=== PATIENT | female | born 1975 | race Caucasian/White ===

== ENCOUNTER → 2017-05-26 | Outpatient (CLI) | payer OTHER ==
[~2017-05-26] MED LIST: ALB17R INH; AZIT-1 PO; BENZ200C15 PO; BENZ200C38 PO; BUPR-474 PO; BUSP10TA95 PO; CALC600T63 PO; CODE118S5 PO; DIA5 PO; DIP25 PO; FLUT16SP19; FLUT16SP20 NS; KET10 PO; LISI-355 PO; LISI-362 PO; METH4TAB63 PO; MONT10TA PO; MULT1CAP59 PO; NYST100016 MT; OXYC-869 PO; PER PO; PHEN120S16 PO; PRED20TA6 PO; RAN150 PO; Return to Work; SIMV-44 PO; SUVO10TA PO; TRAM-420 PO; VAR1 PO; ZOLP-1 PO
--- NOTE | 2017-05-26 10:21 | RADIOLOGY IMAGING REPORT ---
FACILITY: [facility] PATIENT NAME: Erika Clarke : 1975 MR: [id number] V: [id number] EXAM DATE: ORDERING PHYSICIAN: VANDANA MCCOY TECHNOLOGIST: Location: [facility] Patient: Erika Clarke : 1975 Visit/Account:[id number] Date of Sevice: 05/26/2017 EXAMINATION: Abdominal ultrasound complete: 05/26/2017 8:09 AM HISTORY: Mass in the left upper quadrant measuring 2 to 3 cm. Pain.. Tenderness with palpation. COMPARISON STUDIES: none. FINDINGS: Gallbladder: no stones or sludge. Liver: Mildly prominent. Diffuse echogenic and poorly penetrated. Focal sparing adjacent to the gal lbladder. No other discrete mass. Common duct: 4 mm Pancreas: Obscured by bowel gas Spleen: negative Kidneys: negative Upper abdominal aorta and IVC: negative Ascites: none Imaging of the abdominal wall near of pain shown by the patient was performed. No discrete mass or h ernia was demonstrate sonographically. An elongated echogenic area in some of the images appears sim ply be a fascial band between muscle, and that was the technologist live impression as well. IMPRESSION: 1. Prominent fatty liver. 2. No discrete finding correlating with the area of lump and pain in the left abdomen shown by the p atient. Report Dictated By: Pawan Lindquist MD at 05/26/2017 10:09 AM Report E-Signed By: Pawan Lindquist MD at 05/26/2017 10:16 AM WSN:[id number]
== END ==
LOC: US 06:54
PROVIDERS: ATTEND Nurse Practitioner Family
DX: K76.0 Fatty (change of) liver, not elsewhere classified (principal)
CPT/HCPCS: 76700

== ENCOUNTER → 2017-06-05 | Outpatient (CLI) | payer OTHER ==
[~2017-06-05] MED LIST changes: +IOPAMIDOL 76% 75 ML INFUS BTL 75 ML ONE
--- NOTE | 2017-06-05 15:59 | RADIOLOGY IMAGING REPORT ---
FACILITY: [facility] [place] PATIENT NAME: Erika Clarke : 1975 MR: [id number] V: [id number] EXAM DATE: ORDERING PHYSICIAN: VANDANA MCCOY TECHNOLOGIST: Location: [facility] Patient: Erika Clarke : 1975 Visit/Account:[id number] Date of Sevice: 06/05/2017 ABDOMEN/PELVIS WITH CONTRAST HISTORY: Abdominal mass, abdominal pain TECHNIQUE: CT abdomen and pelvis with intravenous contrast. Contiguous axial images of the abdomen and pelvis was performed from the lung bases to the symphysis pubis. One of the following dose optimization techniques was utilized in the performance of this exam: Autom ated exposure control; adjustment of the mA and/or kV according to the patient's size; or use of an i terative reconstruction technique. Specific details can be referenced in the facility's radiology C T exam operational policy. CONTRAST: 75 cc of Isovue-370 COMPARISON: Ultrasound 05/26/2017 FINDINGS: Visualized lung bases: Negative. Hepatobiliary: Liver measures 19.6 cm in craniocaudal length with diffuse fatty infiltration. Gallbl adder and bile ducts are unremarkable. Spleen: Negative. Adrenals: Negative. Kidneys/: Benign right renal cortical cyst is noted posterior mid pole measures 1.1 cm. There is a n enhancing follicle left ovary likely a corpus luteal cyst. Pancreas: Negative. GI: Appendix is not well-visualized may be absent. No bowel obstruction or focal inflammation. Vessels/spaces/nodes: Negative. Bones/soft tissues: Negative. IMPRESSION: 1. No acute pathology in the abdomen or pelvis. 2. Fatty infiltration of the liver. Report Dictated By: Bry Castro MD at 06/05/2017 3:48 PM Report E-Signed By: Bry Castro MD at 06/05/2017 3:55 PM WSN:[id number]
== END ==
LOC: CT 08:54
PROVIDERS: ATTEND Nurse Practitioner Family
DX: R19.00 Intra-abdominal and pelvic swelling, mass and lump, unspecified site (principal); I10 Essential (primary) hypertension; E55.9 Vitamin D deficiency, unspecified; D51.0 Vitamin B12 deficiency anemia due to intrinsic factor deficiency
CPT/HCPCS: 36415; 74177; 82306; 82565; 82607; Q9967

== ENCOUNTER → 2017-06-10 | Outpatient (CLI) | payer OTHER ==
[~2017-06-10] MED LIST changes: +NS 0.9% 150 ML BAG 150 ML ONE
--- NOTE | 2017-06-10 14:38 | RADIOLOGY IMAGING REPORT ---
FACILITY: [facility] PATIENT NAME: Erika Clarke : 1975 MR: [id number] V: [id number] EXAM DATE: ORDERING PHYSICIAN: VANDANA MCCOY TECHNOLOGIST: Location: Patient: Erika Clarke : 1975 Visit/Account:[id number] Date of Sevice: 06/10/2017 CTA CHEST WW/O CNTR (PULM ANG) HISTORY: Chronic cough. ADDITIONAL HISTORY: None. TECHNIQUE: CTA chest with intravenous contrast. Axial imaging acquired following administration of IV contrast timed for maximum opacification of the pulmonary arterial vasculature. Slab 3-D MIP ananth nstructed images were also created for further evaluation and interpretation. Reconstruction of the [facility] data set includes multiplanar 2-D in the sagittal and coronal planes and 3-D reconstructed sanya nal slab MIP series. 3-D images were created by the technologist. One of the following dose optimiz ation techniques was utilized in the performance of this exam: Automated exposure control; adjustment of the mA and/or kV according to the patient's size; or use of an iterative reconstruction techniqu e. Specific details can be referenced in the facility's radiology CT exam operational policy. CONTRAST: 75 mL Isovue-370 COMPARISON: None. FINDINGS: Lungs/pleura: There is a very subtle indistinct groundglass opacity seen in the right upper lobe onl y measuring approximately 2 cm in diameter. The appearance is more suggestive of a small area of inf lammation than of the lesion. There are no solid nodule seen in the lungs in lung parenchyma is othe rwise normal and well-aerated. Heart/vessels: Negative. There are no filling defects seen in the pulmonary arteries worrisome for a pulmonary embolus. Mediastinum/lymph nodes: Negative. Visualized upper abdomen: Liver measures only 25 Hounsfield units appear no focal liver lesions are seen. Visualized abdominal viscera otherwise normal. Bones/soft tissues: Negative. Additional findings: None IMPRESSION: Negative for pulmonary embolus. Findings suggestive of a mild inflammatory process involving only a small area of the right upper lob e. Malignancy considered unlikely. However, per Fleischner Society guidelines detailed below recomm end a three month follow-up noncontrast chest CT. If persistent at three months longer-term surveill ance CTs may be necessary. Hepatic steatosis Fleischner Society Management Recommendations for Ground Glass Nodules: (Agutsina et al, Recommendatio ns for the management of sub-solid pulmonary nodules detected at CT: A Statement from the Fleischner Society. Radiology 2013; 266(1): 304-317.) - Solitary pure groundglass nodules less than or equal to 5 mm: No CT followup required. - Solitary pure groundglass nodules >5 mm: Initial followup CT at 3 months to confirm persistence the n annual surveillance CT for a minimum of 3 years. Please note FDG PET is of limited value with pure groundglass nodules, and can be misleading as they commonly demonstrate false negative activity due t o their indolent nature. - Multiple pure groundglass nodules less than or equal to 5 mm: Obtain followup CT at 2 and 4 years. - Multiple groundglass nodules >5 mm (without dominant lesion(s)): Initial followup CT at 3 months to confirm persistence, and then annual surveillance CT for a minimum of 3 years. Please note recommendations must be interpreted in light of an individual's clinical history (i.e. li mited duration or no followup may be preferred by individuals with life-limiting comorbidities in who m a low-grade malignancy would be of little consequence or by others who place a high value on avoidi ng treatment of possible indolent lung cancer). Report Dictated By: Kana Mohr MD at 06/10/2017 2:19 PM Report E-Signed By: Kana Mohr MD at 06/10/2017 2:32 PM WSN:[id number]
== END ==
LOC: CT 13:38
PROVIDERS: ATTEND Nurse Practitioner Family
DX: K83.1 Obstruction of bile duct (principal); R91.8 Other nonspecific abnormal finding of lung field
CPT/HCPCS: 71275; Q9967

== ENCOUNTER → 2017-07-01 | Outpatient (CLI) | payer OTHER ==
[~2017-07-01] MED LIST changes: -IOPAMIDOL 76% 75 ML INFUS BTL 75 ML ONE; -NS 0.9% 150 ML BAG 150 ML ONE
--- NOTE | 2017-07-01 13:30 | RADIOLOGY IMAGING REPORT ---
FACILITY: [facility] PATIENT NAME: Erika Clarke : 1975 MR: [id number] V: [id number] EXAM DATE: ORDERING PHYSICIAN: VANDANA MCCOY TECHNOLOGIST: Location: [facility] [place] Patient: Erika Clarke : 1975 Visit/Account:[id number] Date of Sevice: 07/01/2017 LUMBAR SPINE 4 VIEWS HISTORY: Chronic sciatica Additional history: None COMPARISON: None. FINDINGS: Five views including oblique views performed. Lumbar spine is aligned. There is mild disc space jordan rowing L5-S1. Disc space height is otherwise well maintained. Osseous structures normal. There is no evidence of spondylolysis. IMPRESSION: Probable degenerative disc disease L5-S1. Otherwise unremarkable study. Report Dictated By: Kana Mohr MD at 07/01/2017 1:24 PM Report E-Signed By: Kana Mohr MD at 07/01/2017 1:26 PM WSN:[id number]
== END ==
LOC: RAD 10:59
PROVIDERS: ATTEND Nurse Practitioner Family
DX: M54.30 Sciatica, unspecified side (principal); M54.40 Lumbago with sciatica, unspecified side
CPT/HCPCS: 72120

== ENCOUNTER → 2017-09-30 | Outpatient (CLI) | payer OTHER ==
[~2017-09-30] MED LIST changes: +OMEP40CA48 PO; +RANI-325 PO
--- NOTE | 2017-09-30 17:24 | RADIOLOGY IMAGING REPORT ---
FACILITY: [facility] PATIENT NAME: Erika Clarke : 1975 MR: [id number] V: [id number] EXAM DATE: ORDERING PHYSICIAN: ANGELINA STRATTON TECHNOLOGIST: Location: [facility] [place] Patient: Erika Clarke : 1975 Visit/Account:[id number] Date of Sevice: 09/30/2017 CT OF THE CHEST WITHOUT INTRAVENOUS CONTRAST, DATE OF EXAM: 09/30/2017 16:36 COMPARISON: CTA chest June 10, 2017. INDICATION: Upper extremity edema. Shortness of breath. TECHNIQUE: Noncontrast axial CT imaging was performed through the chest with sagittal and coronal ref ormats. FINDINGS: No effusion, consolidation, or pneumothorax. Mild scattered atelectasis. Some of the faint opacity in the right lower lobe could potentially be aspiration but may be atelectasis as well. Thyroid: Incompletely imaged. Thoracic inlet: No adenopathy. Heart and great vessels: Heart size is normal. Mediastinum and khushbu: No mediastinal or hilar adenopathy. Lungs and pleura: As above. Breast and axilla: Breast tissue is incompletely imaged. Bones and soft tissues: No acute osseous abnormality. Upper abdomen: Liver parenchymal density is diffusely decreased. IMPRESSION: 1. No effusion, consolidation, or pneumothorax. 2. Mild scattered atelectasis with faint patchy opacity in the right lower lobe that is probably atel ectasis but could also represent minimal aspiration. One of the following dose optimization techniques was utilized in the performance of this exam: Autom ated exposure control; adjustment of the mA and/or kV according to the patient's size; or use of an i terative reconstruction technique. Specific details can be referenced in the facility's radiology C T exam operational policy. Report Dictated By: Sigifredo Taylor MD at 09/30/2017 5:11 PM Report E-Signed By: Sigifredo Taylor MD at 09/30/2017 5:19 PM WSN:[id number]
--- NOTE | 2017-09-30 18:18 | RADIOLOGY IMAGING REPORT ---
FACILITY: [facility] [place] PATIENT NAME: Erika Clarke : 1975 MR: [id number] V: [id number] EXAM DATE: ORDERING PHYSICIAN: ANGELINA STRATTON TECHNOLOGIST: Location: [facility] [place] Patient: Erika Clarke : 1975 Visit/Account:[id number] Date of Sevice: 09/30/2017 VENOUS DOPP LOWER BILAT EXTREM HISTORY: Bilateral calf pain COMPARISON: None. FINDINGS: Grayscale, duplex and color Doppler interrogation of the bilateral lower extremity deep veins from co mmon femoral vein to proximal calf was completed. The greater saphenous vein in the right and left pr oximal thigh was evaluated using similar technique. RIGHT lower extremity Common femoral vein: Negative. Femoral vein: Negative. Deep femoral vein: Negative. Popliteal vein: Negative. Visualized calf veins: Negative. Popliteal fossa: Negative. Greater saphenous vein in the proximal thigh: Negative. LEFT lower extremity: Common femoral vein: Negative. Femoral vein: Negative. Deep femoral vein: Negative. Popliteal vein: Negative. Visualized calf veins: Negative. Popliteal fossa: Negative. Greater saphenous vein in the proximal thigh: Negative. Other findings: None significant IMPRESSION: 1. Negative for deep venous thrombosis within the bilateral lower extremities. Report Dictated By: Everett Carreon MD at 09/30/2017 6:13 PM Report E-Signed By: Everett Carreon MD at 09/30/2017 6:14 PM WSN:[id number]
== END ==
LOC: CT 16:24
PROVIDERS: ATTEND Nurse Practitioner Family
DX: R91.8 Other nonspecific abnormal finding of lung field (principal)
CPT/HCPCS: 71250; 93306; 93970

== ENCOUNTER → 2017-10-01 | Outpatient (CLI) | payer OTHER | LOC: LAB 15:13 | PROVIDERS: ATTEND Nurse Practitioner Family | DX: R06.02 Shortness of breath (principal); R06.82 Tachypnea, not elsewhere classified; R53.81 Other malaise; E87.8 Other disorders of electrolyte and fluid balance, not elsewhere classified; E79.0 Hyperuricemia without signs of inflammatory arthritis and tophaceous disease | CPT/HCPCS: 36415; 82040; 82247; 82310; 82374; 82435; 82565; 82947; 83880; 84075; 84132; 84155; 84295; 84450; 84460; 84520; 84550; 85027 ==

== ENCOUNTER 2018-03-08 05:53 | Emergency (ER) | payer OTHER ==
--- NOTE | 2018-03-08 05:57 | ER Report ---
History and Physical Time Seen By MD: 05:57 (ELÍAS FLEMING DO) HPI/ROS CHIEF COMPLAINT: Right flank pain HISTORY OF PRESENT ILLNESS: 42-year-old female presents ambulatory to the ER complaining of 9/10 right flank pain starting yesterday morning, radiating down to her right lower abdomen and across to her lower abdomen. Patient status post appendectomy. Her last menstrual period finished 3 days ago. She denies fever or chills. She's had no hematuria or dysuria. Patient reports history of kidney stones in the past. REVIEW OF SYSTEMS: Respiratory: No cough, no dyspnea. Cardiovascular: No chest pain, no palpitations. Gastrointestinal: As above Musculoskeletal: As above (ELÍAS FLEMING DO) Allergies: Coded Allergies: Sulfa (Sulfonamide Antibiotics) (Verified Allergy, Intermediate, HIVES SWELLING, 03/08/18) methocarbamol (Verified Allergy, Intermediate, HIVES AND SWELLING, 03/08/18) Home Meds Active Scripts Ondansetron Hcl (ZOFRAN) 4 Mg Tablet, 4 MG PO Q8H for Nausea, #15 TAB 0 Refills Prov:MARCELO COREA MD 03/08/18 Oxycodone Hcl/Acetaminophen (PERCOCET 5-325 MG TABLET) 1 Each Tablet, 1 EACH PO Q4H for PAIN, #20 TAB 0 Refills Prov:MARCELO COREA MD 03/08/18 Reported Medications Olmesartan Medoxomil (BENICAR) 5 Mg Tablet, PO QDAY 03/08/18 Omeprazole (OMEPRAZOLE) 40 Mg Capsule.dr, 40 MG PO QDAY, CAP 03/08/18 Multivitamin (MULTIVITAMINS) 1 Each Capsule, 1 EACH PO, CAPSULE 03/18/17 Tramadol Hcl (TRAMADOL HCL) 50 Mg Tablet, 50-100 MG PO Q4-6H, TAB 03/18/17 Bupropion Hcl (WELLBUTRIN XL) 300 Mg Tab.er.24h, 300 MG PO QDAY, TAB 03/01/17 Discontinued Reported Medications Calcium Carbonate (CALCIUM) 600 Mg Tablet, 600 MG PO 03/18/17 Montelukast Sodium (SINGULAIR) 10 Mg Tablet, 1 TAB PO QDAY, TAB 03/01/17 Buspirone Hcl (BUSPIRONE HCL) 10 Mg Tablet, 20 MG PO BID, #20 TAB 05/05/16 Lisinopril/Hydrochlorothiazide (LISINOPRIL-HCTZ 20-25 MG TAB) 1 Each Tablet, 1 EACH PO DAILY 03/28/16 Discontinued Scripts Omeprazole (OMEPRAZOLE) 40 Mg Capsule.dr, 1 CAP PO QDAY for 30 Days, #30 CAP 0 Refills Prov:ERAN SANTOS JR, MD 07/31/17 Ranitidine Hcl (ZANTAC) 300 Mg Tablet, 300 MG PO QHS for 30 Days, #30 TAB Prov:ERAN SANTOS JR, MD 07/20/17 Fluticasone Prop 50 Mcg Ns (FLONASE 50 MCG NS) 16 Gm Wren.susp, 2 SPRAYS NA QDAY for 30 Days, #1 BOT 3 Refills Prov:ERAN SANTOS JR, MD 03/17/17 Nystatin (Nystatin) 100,000 Unit/Ml Oral.susp, 5 ML MT QID for 10 Days, #200 ML Prov:ERAN SANTOS JR, MD 03/17/17 Past Medical/Surgical History Past medical history: Hyperlipidemia, hypertension, asthma, GERD, dyspepsia, anx iety, depression, seasonal allergies Past surgical history: Appendectomy, 1997 2002, tubal ligation (ELÍAS FLEMING DO) Reviewed Nurses Notes: Yes Old Medical Records Reviewed: Yes (ELÍAS FLEMING DO) Hx Smoking: Yes Smoking Status: Current: Every Day Smoker, Light Tobacco Smoker (ELÍAS FLEMING DO) Constitutional Vital Sign - Last 24 Hours 03/08/18 03/08/18 03/08/18 03/08/18 06:00 06:08 06:23 06:30 Temp 98.7 Pulse 100 94 96 Resp 24 B/P (MAP) 176/105 138/97 (111) Pulse Ox 91 93 90 03/08/18 03/08/18 03/08/18 06:38 07:00 07:29 Pulse 94 B/P (MAP) 133/88 (103) Pulse Ox 91 O2 Flow Rate 1.0 (MARCELO COREA MD) Physical Exam Vital signs stable, elevated blood pressure, afebrile, pulse ox normal General Appearance: The patient is alert, has no immediate need for airway protection and no current signs of toxicity. Moderate distress Eyes: Pupils equal and round no injection. Respiratory: Chest is non tender, lungs are clear to auscultation. Cardiac: regular rate and rhythm, no murmur Gastrointestinal: Abdomen is soft and non tender, no masses, bowel sounds normal. Mild right CVA tenderness Musculoskeletal: Neck: Neck is supple and non tender. Extremities have full range of motion and are non tender. Skin: No rashes or lesions. DIFFERENTIAL DIAGNOSIS: After history and physical exam differential diagnosis was considered for flank pain including but not limited to musculoskeletal causes, kidney stone, pyelonephritis, shingles, and intra-abdominal causes such as diverticulitis and appendicitis. Additionally,abdominal pain including but not limited to appendicitis, cholecystitis, gastritis and urinary tract in fection. (ELÍAS FLEMING DO) Medical Decision Making Data Points Result Diagram: 03/08/18 0606 03/08/18 0606 Laboratory Hematology Test 03/08/18 06:06 03/08/18 07:15 Red Blood Count 4.61 M/uL (4.17-5.56) Mean Corpuscular Volume 80.1 fL (80.0-96.0) Mean Corpuscular Hemoglobin 25.3 pg (26.0-33.0) Mean Corpuscular Hemoglobin Concent 31.7 g/dL (32.0-36.0) Red Cell Distribution Width 15.8 % (11.5-14.5) Mean Platelet Volume 8.8 fL (7.2-11.1) Neutrophils (%) (Auto) 57.6 % (39.4-72.5) Lymphocytes (%) (Auto) 32.2 % (17.6-49.6) Monocytes (%) (Auto) 5.6 % (4.1-12.4) Eosinophils (%) (Auto) 3.5 % (0.4-6.7) Basophils (%) (Auto) 1.1 % (0.3-1.4) Nucleated RBC Relative Count (auto) 0.0 /100WBC Neutrophils # (Auto) 3.7 K/uL (2.0-7.4) Lymphocytes # (Auto) 2.1 K/uL (1.3-3.6) Monocytes # (Auto) 0.4 K/uL (0.3-1.0) Eosinophils # (Auto) 0.2 K/uL (0.0-0.5) Basophils # (Auto) 0.1 K/uL (0.0-0.1) Nucleated RBC Absolute Count (auto) 0.00 K/uL Sodium Level 136 mmol/L (137-145) Potassium Level 4.4 mmol/L (3.5-5.0) Chloride Level 104 mmol/L (98-107) Carbon Dioxide Level 25 mmol/L (22-31) Blood Urea Nitrogen 14 mg/dl (7-18) Creatinine 0.60 mg/dl (0.52-1.04) Glomerular Filtration Rate Calc > 60.0 Random Glucose 132 mg/dl (75-110) Calcium Level 8.9 mg/dl (8.4-10.2) Total Bilirubin 0.2 mg/dl (0.2-1.3) Aspartate Amino Transf (AST/SGOT) 51 U/L (0-35) Alanine Aminotransferase (ALT/SGPT) 65 U/L (0-56) Alkaline Phosphatase 67 U/L (0-126) Total Protein 6.3 g/dl (6.3-8.2) Albumin 3.6 g/dl (3.5-5.0) Amylase Level 36 U/L (0-110) Lipase 105 U/L (23-300) Human Chorionic Gonadotropin, Qual Negative (NEGATIVE) Urine Color Yellow Urine Clarity Clear Urine pH 6.0 pH (4.8-9.5) Urine Specific [place] 1.024 Urine Protein Negative mg/dL (NEGATIVE) Urine Glucose (UA) Negative mg/dL (NEGATIVE) Urine Ketones Negative mg/dL (NEGATIVE) Urine Blood Negative (NEGATIVE) Urine Nitrite Negative (NEGATIVE) Urine Bilirubin Negative (NEGATIVE) Urine Urobilinogen Negative mg/dL (0.2-1.9) Urine Leukocyte Esterase Trace (NEGATIVE) Urine RBC 1 /HPF (0-2/HPF) Urine WBC 1 /HPF (0-5/HPF) Urine Squamous Epithelial Cells Many /LPF (</=FEW) Urine Bacteria Negative /HPF (NONE-FEW) Urine Mucus Few /HPF (NONE-FEW) Chemistry Test 03/08/18 06:06 03/08/18 07:15 White Blood Count 6.4 k/uL (4.5-11.0) Red Blood Count 4.61 M/uL (4.17-5.56) Hemoglobin 11.7 g/dL (12.0-16.0) Hematocrit 37.0 % (34.0-47.0) Mean Corpuscular Volume 80.1 fL (80.0-96.0) Mean Corpuscular Hemoglobin 25.3 pg (26.0-33.0) Mean Corpuscular Hemoglobin Concent 31.7 g/dL (32.0-36.0) Red Cell Distribution Width 15.8 % (11.5-14.5) Platelet Count 323 K/uL (150-450) Mean Platelet Volume 8.8 fL (7.2-11.1) Neutrophils (%) (Auto) 57.6 % (39.4-72.5) Lymphocytes (%) (Auto) 32.2 % (17.6-49.6) Monocytes (%) (Auto) 5.6 % (4.1-12.4) Eosinophils (%) (Auto) 3.5 % (0.4-6.7) Basophils (%) (Auto) 1.1 % (0.3-1.4) Nucleated RBC Relative Count (auto) 0.0 /100WBC Neutrophils # (Auto) 3.7 K/uL (2.0-7.4) Lymphocytes # (Auto) 2.1 K/uL (1.3-3.6) Monocytes # (Auto) 0.4 K/uL (0.3-1.0) Eosinophils # (Auto) 0.2 K/uL (0.0-0.5) Basophils # (Auto) 0.1 K/uL (0.0-0.1) Nucleated RBC Absolute Count (auto) 0.00 K/uL Glomerular Filtration Rate Calc > 60.0 Calcium Level 8.9 mg/dl (8.4-10.2) Total Bilirubin 0.2 mg/dl (0.2-1.3) Aspartate Amino Transf (AST/SGOT) 51 U/L (0-35) Alanine Aminotransferase (ALT/SGPT) 65 U/L (0-56) Alkaline Phosphatase 67 U/L (0-126) Total Protein 6.3 g/dl (6.3-8.2) Albumin 3.6 g/dl (3.5-5.0) Amylase Level 36 U/L (0-110) Lipase 105 U/L (23-300) Human Chorionic Gonadotropin, Qual Negative (NEGATIVE) Urine Color Yellow Urine Clarity Clear Urine pH 6.0 pH (4.8-9.5) Urine Specific [place] 1.024 Urine Protein Negative mg/dL (NEGATIVE) Urine Glucose (UA) Negative mg/dL (NEGATIVE) Urine Ketones Negative mg/dL (NEGATIVE) Urine Blood Negative (NEGATIVE) Urine Nitrite Negative (NEGATIVE) Urine Bilirubin Negative (NEGATIVE) Urine Urobilinogen Negative mg/dL (0.2-1.9) Urine Leukocyte Esterase Trace (NEGATIVE) Urine RBC 1 /HPF (0-2/HPF) Urine WBC 1 /HPF (0-5/HPF) Urine Squamous Epithelial Cells Many /LPF (</=FEW) Urine Bacteria Negative /HPF (NONE-FEW) Urine Mucus Few /HPF (NONE-FEW) Urinalysis Test 03/08/18 07:15 Urine Color Yellow Urine Clarity Clear Urine pH 6.0 pH (4.8-9.5) Urine Specific [place] 1.024 Urine Protein Negative mg/dL (NEGATIVE) Urine Glucose (UA) Negative mg/dL (NEGATIVE) Urine Ketones Negative mg/dL (NEGATIVE) Urine Blood Negative (NEGATIVE) Urine Nitrite Negative (NEGATIVE) Urine Bilirubin Negative (NEGATIVE) Urine Urobilinogen Negative mg/dL (0.2-1.9) Urine Leukocyte Esterase Trace (NEGATIVE) Urine RBC 1 /HPF (0-2/HPF) Urine WBC 1 /HPF (0-5/HPF) Urine Squamous Epithelial Cells Many /LPF (</=FEW) Urine Bacteria Negative /HPF (NONE-FEW) Urine Mucus Few /HPF (NONE-FEW) (MARCELO COREA MD) EKG/Imaging Imaging FACILITY: [facility] [place] PATIENT NAME: Erika Clarke : 1975 MR: [id number] V: [id number] EXAM DATE: [id number] ORDERING PHYSICIAN: ELÍAS FLEMING TECHNOLOGIST: Location: [facility] - [place] Patient: Erika Clarke : 1975 Visit/Account:[id number] Date of Sevice: 03/08/2018 COMPUTED TOMOGRAPHY ABDOMEN AND PELVIS WITHOUT INTRAVENOUS CONTRAST DATE OF EXAM: 03/08/2018 6:29 AM INDICATION: Right flank pain. COMPARISON: CT abdomen and pelvis 06/05/2017 and previous. TECHNIQUE: Noncontrast abdomen and pelvis CT performed. Sagittal and coronal reconstructions were performed. One of the following dose optimization techniques was utilized in the performance of this exam: Automated exposure control; adjustment of the mA and/or kV according to the patient's size; or use of an iterative reconstruction technique. Specific details can be referenced in the facility's radiology CT exam operational policy. FINDINGS: Lung bases: Mild atelectasis. Liver: Liver is enlarged and diffusely hypoattenuating with sparing about the gallbladder fossa. No apparent acute abnormality or suspicious lesion. Gallbladder and bile ducts: Normal. Spleen: Normal. Pancreas: Normal. Adrenals: Normal. Kidneys, ureters and bladder: Bilateral small nonobstructing calculi. No hydronephrosis. No suspicious lesion. Question small cyst in left kidney on image 61 series 3. Retroperitoneum and aorta: Normal aorta. Circumaortic left renal veins. GI tract, mesentery and peritoneum: Nonacute. Nonvisualized appendix with no evidence of acute inflammation in the region of the cecum; question appendectomy. Uterus and adnexa: Normal. Bones and soft tissues: No acute abnormality or suspicious lesion. IMPRESSION: 1. No apparent acute abnormality. 2. Bilateral nonobstructing renal calculi. 3. Hepatomegaly and steatosis. Report Dictated By: Carmelo Whitman MD at 03/08/2018 7:24 AM Report E-Signed By: Carmelo Whitman MD at 03/08/2018 7:32 AM WSN:[id number] (MARCELO COREA MD) ED Course/Re-evaluation Clinical Indication for ER IV: Hydration, IV Access ED Course Patient was admitted to an examination room. H&P was done. The differential diagnoses was considered. Initial diagnostic evaluation was ordered. Patient was treated with IV Zofran and fentanyl. She's having severe right flank pain. She has a history of previous stones on a CAT scan in 2010. She is unable to provide us with a urinalysis. A CT scan of the abdomen and pelvis is ordered without contrast. Laboratory studies are unremarkable and discussed with Dr. Castillo care is turned over at [address] is still pending. Turned Over The care of the patient was turned over to Dr Corea. Dr. Fleming I authorize my typed signature that I authenticated this report. (ELÍAS FLEMING DO) ED Course 03/08/2018 7:46:29 am patient improved but still having discomfort. CT scan reveals no apparent acute abnormality. Blood work is unremarkable. Urinalysis is not suggestive of infection. We will give some additional pain medicine. Likely discharge home with shortness to return if symptoms worsen or persist. 03/08/2018 9:23:56 am patient is being observed in the emergency department due to some desaturations noticed on pulse ox likely narcotic induced. We will give a dose of Narcan and continue to observe until she stabilizes with a pulse ox. Decision to Disposition Date: Mar 08, 2018 Decision to Disposition Time: 07:57 Turned Over Accepted care of patient at 0700; CT scan pending. Patient still having right flank pain we'll dose with Toradol and fentanyl. (MARCELO COREA MD) Depart Departure Latest Vital Signs Vital Signs Date Time Temp Pulse Resp B/P (MAP) Pulse Ox O2 Delivery O2 Flow Rate FiO2 03/08/18 07:29 1.0 03/08/18 07:00 133/88 (103) 03/08/18 06:38 94 91 03/08/18 06:00 98.7 24 (MARCELO COREA MD) Impression: Primary Impression: Flank pain Condition: Improved Disposition: HOME OR SELF-CARE Referrals: VANDANA MCCOY (PCP) 2 Days if symptoms persist New Scripts Ondansetron Hcl (ZOFRAN) 4 Mg Tablet 4 MG PO Q8H for Nausea, #15 TAB 0 Refills Prov: MARCELO COREA MD 03/08/18 Oxycodone Hcl/Acetaminophen (PERCOCET 5-325 MG TABLET) 1 Each Tablet 1 EACH PO Q4H for PAIN, #20 TAB 0 Refills Prov: MARCELO COREA MD 03/08/18 Departure Forms: ER Transition Record, Medications Reconciliation, Off Work/School Form, School or Work Release?: Work Number of days to be released: 2 Patient Portal Information Patient Instructions: Flank Pain (ED) Additional Instructions: Return to the emergency department at any time if he develops fever. Return if you have persistent pain or intractable nausea and vomiting. Follow-up with your primary care provider if you do not have improvement in 48 hours. ELÍAS FLEMING DO Mar 08, 2018 05:57 MARCELO COREA MD Mar 08, 2018 07:13
[2018-03-08] MEDS ORDERED: OLME5TAB8 PO (06:06)
[2018-03-08] MEDS ORDERED: OMEP40CA48 PO (06:06)
[2018-03-08] MEDS ORDERED: NS(*) 0.9% 1000 ML BAG 1,000 ML IV ONE (06:08)
[2018-03-08] MEDS ORDERED: ONDANSETRON 4 MG/2 ML VIAL IVP ONE (06:10)
[2018-03-08] MEDS ORDERED: fentaNYL CITR 100 MCG/2 ML AMP IVP ONE ×2 (06:10→07:10)
[2018-03-08 06:38] LABS: PLATELET COUNT, AUTOMATED 323 K/uL (150-450)
[2018-03-08] MEDS ORDERED: KETOROLAC 15 MG/ML VIAL IVP ONE (07:10)
--- NOTE | 2018-03-08 07:36 | RADIOLOGY IMAGING REPORT ---
FACILITY: [facility] [place] PATIENT NAME: Erika Clarke : 1975 MR: [id number] V: [id number] EXAM DATE: ORDERING PHYSICIAN: ELÍAS GOVEA TECHNOLOGIST: Location: [facility] [place] Patient: Erika Clarke : 1975 Visit/Account:[id number] Date of Sevice: 03/08/2018 COMPUTED TOMOGRAPHY ABDOMEN AND PELVIS WITHOUT INTRAVENOUS CONTRAST DATE OF EXAM: 03/08/2018 6:29 AM INDICATION: Right flank pain. COMPARISON: CT abdomen and pelvis 06/05/2017 and previous. TECHNIQUE: Noncontrast abdomen and pelvis CT performed. Sagittal and coronal reconstructions were pe rformed. One of the following dose optimization techniques was utilized in the performance of this e xam: Automated exposure control; adjustment of the mA and/or kV according to the patient's size; or u se of an iterative reconstruction technique. Specific details can be referenced in the facility's r adiology CT exam operational policy. FINDINGS: Lung bases: Mild atelectasis. Liver: Liver is enlarged and diffusely hypoattenuating with sparing about the gallbladder fossa. No apparent acute abnormality or suspicious lesion. Gallbladder and bile ducts: Normal. Spleen: Normal. Pancreas: Normal. Adrenals: Normal. Kidneys, ureters and bladder: Bilateral small nonobstructing calculi. No hydronephrosis. No suspic ious lesion. Question small cyst in left kidney on image 61 series 3. Retroperitoneum and aorta: Normal aorta. Circumaortic left renal veins. GI tract, mesentery and peritoneum: Nonacute. Nonvisualized appendix with no evidence of acute infl ammation in the region of the cecum; question appendectomy. Uterus and adnexa: Normal. Bones and soft tissues: No acute abnormality or suspicious lesion. IMPRESSION: 1. No apparent acute abnormality. 2. Bilateral nonobstructing renal calculi. 3. Hepatomegaly and steatosis. Report Dictated By: Carmelo Whitman MD at 03/08/2018 7:24 AM Report E-Signed By: Carmelo Whitman MD at 03/08/2018 7:32 AM WSN:[id number]
[2018-03-08] MEDS ORDERED: MORPHINE 4 MG/ML SDV IVP ONE (07:45)
[2018-03-08] MEDS ORDERED: ONDA4TAB97 PO (07:49)
[2018-03-08] MEDS ORDERED: OXYC-865 PO (07:49)
[2018-03-08] MEDS ORDERED: NALOXONE HCL 0.4 MG/ML VIAL IVP ONE ×2 (08:25→08:50)
[2018-03-08 09:25] VITALS: BP 122/76
== END 2018-03-08 09:37 | disposition home or self-care (01) ==
LOC: ER 06:14
DX: R10.31 Right lower quadrant pain (principal); F17.210 Nicotine dependence, cigarettes, uncomplicated
CPT/HCPCS: 74176; 81001; 82150; 83690; 84703; 85025; 96361; 96374; 96375; 96376; 99284; J1885; J2270; J2310; J2405; J3010; J7030; 82040; 82247; 82310; 82374; 82435; 82565; 82947; 84075; 84132; 84155; 84295; 84450; 84460; 84520

== ENCOUNTER 2018-03-08 21:25 | Emergency (ER) | payer OTHER ==
[~2018-03-08 21:25] MED LIST changes: +OLME5TAB8 PO; +ONDA4TAB97 PO; +OXYC-865 PO
--- NOTE | 2018-03-08 21:36 | ER Report ---
History and Physical Time Seen By : 21:36 HPI/ROS CHIEF COMPLAINT: Headache, vomiting HISTORY OF PRESENT ILLNESS: 42-year-old female presents ambulatory to the ER complaining of severe headache since 4 PM she was in the ER this morning with a bdominal pain. She was treated with IV fentanyl and Zofran. She had a CT scan of the abdomen and pelvis without contrast that was negative for acute pathology. She was discharged home on hydrocodone and Zofran. She took hydrocodone and lay down for nap. When she woke up she developed a sudden h eadache. She describes 9/10 throbbing involving the entire head. She notes photophobia. She denies street migraine headaches. She notes no fevers or stiff neck. Patient denies numbness, tingling or weakness in her arms or legs. REVIEW OF SYSTEMS: Respiratory: No cough, no dyspnea. Cardiovascular: No chest pain, no palpitations. Gastrointestinal: As above Musculoskeletal: No back pain. Allergies: Coded Allergies: Sulfa (Sulfonamide Antibiotics) (Verified Allergy, Intermediate, HIVES SWELLING, 03/08/18) methocarbamol (Verified Allergy, Intermediate, HIVES AND SWELLING, 03/08/18) Home Meds Active Scripts Ondansetron Hcl (ZOFRAN) 4 Mg Tablet, 4 MG PO Q8H for Nausea, #15 TAB 0 Refills Prov:MARCELO BUSBY MD 03/08/18 Oxycodone Hcl/Acetaminophen (PERCOCET 5-325 MG TABLET) 1 Each Tablet, 1 EACH PO Q4H for PAIN, #20 TAB 0 Refills Prov:MARCELO BUSBY MD 03/08/18 Reported Medications Olmesartan Medoxomil (BENICAR) 5 Mg Tablet, PO QDAY 03/08/18 Omeprazole (OMEPRAZOLE) 40 Mg Capsule.dr, 40 MG PO QDAY, CAP 03/08/18 Multivitamin (MULTIVITAMINS) 1 Each Capsule, 1 EACH PO, CAPSULE 03/18/17 Tramadol Hcl (TRAMADOL HCL) 50 Mg Tablet, 50-100 MG PO Q4-6H, TAB 03/18/17 Bupropion Hcl (WELLBUTRIN XL) 300 Mg Tab.er.24h, 300 MG PO QDAY, TAB 03/01/17 Discontinued Reported Medications Calcium Carbonate (CALCIUM) 600 Mg Tablet, 600 MG PO 03/18/17 Montelukast Sodium (SINGULAIR) 10 Mg Tablet, 1 TAB PO QDAY, TAB 03/01/17 Buspirone Hcl (BUSPIRONE HCL) 10 Mg Tablet, 20 MG PO BID, #20 TAB 05/05/16 Lisinopril/Hydrochlorothiazide (LISINOPRIL-HCTZ 20-25 MG TAB) 1 Each Tablet, 1 EACH PO DAILY 03/28/16 Discontinued Scripts Omeprazole (OMEPRAZOLE) 40 Mg Capsule.dr, 1 CAP PO QDAY for 30 Days, #30 CAP 0 Refills Prov:BO SANTOS JR, MD 07/31/17 Ranitidine Hcl (ZANTAC) 300 Mg Tablet, 300 MG PO QHS for 30 Days, #30 TAB Prov:BO SANTOS JR, MD 07/20/17 Fluticasone Prop 50 Mcg Ns (FLONASE 50 MCG NS) 16 Gm [place].susp, 2 SPRAYS NA QDAY for 30 Days, #1 BOT 3 Refills Prov:BO SANTOS JR, MD 03/17/17 Nystatin (Nystatin) 100,000 Unit/Ml Oral.susp, 5 ML MT QID for 10 Days, #200 ML Prov:BO SANTOS JR, MD 03/17/17 Reviewed Nurses Notes: Yes Old Medical Records Reviewed: Yes Hx Smoking: Yes Smoking Status: Current: Every Day Smoker, Light Tobacco Smoker Constitutional Vital Sign - Last 24 Hours 03/08/18 03/08/18 03/08/18 03/08/18 21:25 21:35 21:35 21:40 Temp 98.3 Pulse ??? 108 106 Resp 22 B/P (MAP) 168/106 168/106 (126) Pulse Ox 95 97 O2 Delivery Nasal Cannula 03/08/18 03/08/18 03/08/18 03/08/18 21:55 22:00 22:01 22:10 Pulse 97 ??? B/P (MAP) 142/90 (107) Pulse Ox 94 O2 Flow Rate 2.0 03/08/18 03/08/18 03/08/18 03/08/18 22:18 22:25 22:30 22:40 Pulse 98 94 B/P (MAP) 145/114 (124) 135/98 (110) Pulse Ox 79 86 03/08/18 03/08/18 03/08/18 03/08/18 22:55 23:00 23:10 23:15 Pulse 96 92 91 B/P (MAP) 134/91 (105) Pulse Ox 77 96 98 03/08/18 03/08/18 03/09/18 03/09/18 23:30 23:45 00:00 00:15 Pulse 89 91 102 B/P (MAP) 138/95 (109) 144/104 (117) Pulse Ox 96 88 90 03/09/18 03/09/18 03/09/18 03/09/18 00:35 00:45 01:00 01:15 Pulse 89 92 94 B/P (MAP) 155/96 (115) 135/70 (91) Pulse Ox 93 92 58 O2 Delivery Room Air 03/09/18 03/09/18 03/09/18 03/09/18 01:20 01:30 01:35 01:38 Pulse 89 85 B/P (MAP) ???/??? (1665) 152/74 (100) Pulse Ox 92 92 03/09/18 03/09/18 03/09/18 03/09/18 01:50 01:55 02:00 02:20 Pulse 93 92 89 94 B/P (MAP) 153/95 (114) Pulse Ox 87 90 85 95 03/09/18 03/09/18 03/09/18 03/09/18 02:20 02:21 02:22 02:23 Pulse 94 90 89 85 B/P (MAP) 153/95 (114) Pulse Ox 95 93 92 88 03/09/18 03/09/18 03/09/18 03/09/18 02:24 02:25 02:25 02:26 Pulse 86 86 86 84 Pulse Ox 72 95 95 86 O2 Delivery Room Air 03/09/18 03/09/18 03/09/18 02:27 02:29 02:30 Pulse 84 80 83 B/P (MAP) 145/95 (112) Pulse Ox 87 Physical Exam Vital signs stable, afebrile, pulse ox normal General Appearance: The patient is alert, has no immediate need for airway protection and no current signs of toxicity. Moderate distress HEENT: Pupils equal and round no injection.+ Photophobia TMs normal, oropharynx no redness or exudate, mucous. Membranes are moist Respiratory: Chest is non tender, lungs are clear to auscultation. Cardiac: regular rate and rhythm Gastrointestinal: Abdomen is soft and non tender, no masses, bowel sounds normal. Musculoskeletal: Neck: Neck is supple and non tender. Extremities have full range of motion and are non tender. Skin: No rashes or lesions. DIFFERENTIAL DIAGNOSIS: After history and physical exam differential diagnosis was considered for headache including but not limited to subarachnoid hemorrhage, migraine headache, tension headache and infectious causes such as meningitis, rebound headache, pharyngitis and sinusitis. Medical Decision Making Data Points Result Diagram: 03/08/18214903/08/182149 Laboratory Hematology Test 03/08/18 21:50 03/09/18 00:00 Red Blood Count 4.47 M/uL (4.17-5.56) Mean Corpuscular Volume 79.0 fL (80.0-96.0) Mean Corpuscular Hemoglobin 24.9 pg (26.0-33.0) Mean Corpuscular Hemoglobin Concent 31.5 g/dL (32.0-36.0) Red Cell Distribution Width 15.9 % (11.5-14.5) Mean Platelet Volume 8.5 fL (7.2-11.1) Neutrophils (%) (Auto) 69.9 % (39.4-72.5) Lymphocytes (%) (Auto) 22.1 % (17.6-49.6) Monocytes (%) (Auto) 4.7 % (4.1-12.4) Eosinophils (%) (Auto) 2.7 % (0.4-6.7) Basophils (%) (Auto) 0.6 % (0.3-1.4) Nucleated RBC Relative Count (auto) 0.1 /100WBC Neutrophils # (Auto) 4.9 K/uL (2.0-7.4) Lymphocytes # (Auto) 1.5 K/uL (1.3-3.6) Monocytes # (Auto) 0.3 K/uL (0.3-1.0) Eosinophils # (Auto) 0.2 K/uL (0.0-0.5) Basophils # (Auto) 0.0 K/uL (0.0-0.1) Nucleated RBC Absolute Count (auto) 0.00 K/uL Erythrocyte Sedimentation Rate 13 mm/HOUR (0-20) Sodium Level 138 mmol/L (137-145) Potassium Level 4.4 mmol/L (3.5-5.0) Chloride Level 103 mmol/L (98-107) Carbon Dioxide Level 24 mmol/L (22-31) Blood Urea Nitrogen 17 mg/dl (7-18) Creatinine 0.70 mg/dl (0.52-1.04) Glomerular Filtration Rate Calc > 60.0 Random Glucose 144 mg/dl (75-110) Calcium Level 8.7 mg/dl (8.4-10.2) Total Bilirubin 0.2 mg/dl (0.2-1.3) Aspartate Amino Transf (AST/SGOT) 80 U/L (0-35) Alanine Aminotransferase (ALT/SGPT) 90 U/L (0-56) Alkaline Phosphatase 66 U/L (0-126) Total Protein 6.6 g/dl (6.3-8.2) Albumin 3.7 g/dl (3.5-5.0) Lipase 94 U/L (23-300) Blood Gas Puncture Site Left radial Blood Gas Patient Temperature 98.3 DEGREES Arterial Blood pH 7.42 (7.35-7.45) Arterial Blood Partial Pressure CO2 35 mmHg (32-37) Arterial Blood Partial Pressure O2 94 mmHg (60-80) Arterial Blood HCO3 22 mmol/L (20-26) Arterial Blood Oxygen Saturation 98 % (92-100) Arterial Blood Base Excess -2.0 mmol/L Jesus Test Acceptable Oxygen Liters/Minute 3 Chemistry Test 03/08/18 21:50 03/09/18 00:00 White Blood Count 7.0 k/uL (4.5-11.0) Red Blood Count 4.47 M/uL (4.17-5.56) Hemoglobin 11.1 g/dL (12.0-16.0) Hematocrit 35.3 % (34.0-47.0) Mean Corpuscular Volume 79.0 fL (80.0-96.0) Mean Corpuscular Hemoglobin 24.9 pg (26.0-33.0) Mean Corpuscular Hemoglobin Concent 31.5 g/dL (32.0-36.0) Red Cell Distribution Width 15.9 % (11.5-14.5) Platelet Count 311 K/uL (150-450) Mean Platelet Volume 8.5 fL (7.2-11.1) Neutrophils (%) (Auto) 69.9 % (39.4-72.5) Lymphocytes (%) (Auto) 22.1 % (17.6-49.6) Monocytes (%) (Auto) 4.7 % (4.1-12.4) Eosinophils (%) (Auto) 2.7 % (0.4-6.7) Basophils (%) (Auto) 0.6 % (0.3-1.4) Nucleated RBC Relative Count (auto) 0.1 /100WBC Neutrophils # (Auto) 4.9 K/uL (2.0-7.4) Lymphocytes # (Auto) 1.5 K/uL (1.3-3.6) Monocytes # (Auto) 0.3 K/uL (0.3-1.0) Eosinophils # (Auto) 0.2 K/uL (0.0-0.5) Basophils # (Auto) 0.0 K/uL (0.0-0.1) Nucleated RBC Absolute Count (auto) 0.00 K/uL Erythrocyte Sedimentation Rate 13 mm/HOUR (0-20) Glomerular Filtration Rate Calc > 60.0 Calcium Level 8.7 mg/dl (8.4-10.2) Total Bilirubin 0.2 mg/dl (0.2-1.3) Aspartate Amino Transf (AST/SGOT) 80 U/L (0-35) Alanine Aminotransferase (ALT/SGPT) 90 U/L (0-56) Alkaline Phosphatase 66 U/L (0-126) Total Protein 6.6 g/dl (6.3-8.2) Albumin 3.7 g/dl (3.5-5.0) Lipase 94 U/L (23-300) Blood Gas Puncture Site Left radial Blood Gas Patient Temperature 98.3 DEGREES Arterial Blood pH 7.42 (7.35-7.45) Arterial Blood Partial Pressure CO2 35 mmHg (32-37) Arterial Blood Partial Pressure O2 94 mmHg (60-80) Arterial Blood HCO3 22 mmol/L (20-26) Arterial Blood Oxygen Saturation 98 % (92-100) Arterial Blood Base Excess -2.0 mmol/L Jesus Test Acceptable Oxygen Liters/Minute 3 EKG/Imaging Imaging Results: CT scan of the head without contrast was obtained. The results of the study are no acute findings. The study was read by the radiologist. I viewed the images myself on the PACS system. Results: CTA pulmonary angiogram with IV contrast was obtained. The results of the study are The study was read by the radiologist. I viewed the images myself on the PACS system. ED Course/Re-evaluation Clinical Indication for ER IV: Hydration, IV Access ED Course Patient was admitted to an examination room. H&P was done. The differential diagnoses was considered. She presents with a severe headache. She's never had migraines before. She's never had a headache like this before. It's the worst headache of her life. Patient's medicated for her pain. She is treated with IV fluid hydration. He CT scan of her head is performed. She becomes more hypoxic after more narcotic pain medication. He admits that she has a prescription slip for a sleep apnea study that is 2 months old. Patient has suspected diagnosis of sleep apnea. Every time she falls asleep her saturations dropped significantly down into the 50s. I suspect she had an episode at home where she took a hydrocodone pain pill and took a nap and she got grossly hypoxic and she woke up with severe headache from hypoxia. Patient was monitored for several hours. Her hypoxic and continued. A CTA pulmonary angiogram was performed to rule out occult causes of hypoxia. A CT scan was unremarkable. Patient was reassured that she denies any pulmonary embolisms. She's outfitted with home O2 at 4 L/m to use was she sleeps. She needs to avoid taking opiate pain relievers. She needs to follow-up with Dr. Bo Santos ENT for evaluation for potential surgery to relieve her obstruction. Patient's advised to complete her sleep study. Respiratory therapy is present and states that they are 3 months out on quitting people with C Pap machines. Patient may have 3 months of waiting. Decision to Disposition Date: Mar 09, 2018 Decision to Disposition Time: 03:47 Depart Departure Latest Vital Signs Vital Signs Date Time Temp Pulse Resp B/P (MAP) Pulse Ox O2 Delivery O2 Flow Rate FiO2 03/09/18 02:30 83 145/95 (112) 03/09/18 02:29 87 03/09/18 02:24 Room Air 03/08/18 22:01 2.0 03/08/18 21:35 98.3 22 Impression: Primary Impression: Headache Additional Impressions: Abdominal pain Nausea and vomiting Hypoxia Sleep apnea Condition: Improved Disposition: HOME OR SELF-CARE Referrals: VANDANA MCCOY (PCP) BO SANTOS JR, MD Departure Forms: ER Transition Record, Medications Reconciliation, Patient Portal Information Patient Instructions: Acute Headache (ED), Hypoxia (ED), Sleep Apnea (GEN) Additional Instructions: Take ibuprofen 200 mg 3 tablets 3 times a day with food for 3 days for pain relief Use Tylenol as needed for pain relief Avoid opiate narcotic or sedating type medicine such as Benadryl Use home O2 4 L at night to prevent hypoxia Follow-up with Dr. Bo Santos ENT to have your airway evaluated for potential surgery to prevent obstruction Follow-up with primary care if unimproved in 2-4 days Problem Qualifiers Primary Impression: Headache Headache type: unspecified Headache chronicity pattern: acute headache Intractability: intractable Qualified Codes: R51 - Headache Additional Impressions: Abdominal pain Abdominal location: unspecified location Qualified Codes: R10.9 - Unspecified abdominal pain Nausea and vomiting Vomiting type: unspecified Vomiting Intractability: intractable Qualified Codes: R11.2 - Nausea with vomiting, unspecified Sleep apnea Sleep apnea type: unspecified type Qualified Codes: G47.30 - Sleep apnea, unspecified ELÍAS GOVEA DO Mar 08, 2018 21:36
[2018-03-08] MEDS ORDERED: NS(*) 0.9% 1000 ML BAG 1,000 ML IV ONE (21:39)
[2018-03-08] MEDS ORDERED: ONDANSETRON 4 MG/2 ML VIAL IVP ONE (21:40)
[2018-03-08] MEDS ORDERED: PROMETHAZINE 25 MG/ML 1 ML AMP IVP ONE (21:40)
[2018-03-08] MEDS ORDERED: HYDROMORPHONE HCL 1 MG/ML SYRINGE IVP ONE (21:40)
[2018-03-08 22:02] LABS: PLATELET COUNT, AUTOMATED 311 K/uL (150-450)
--- NOTE | 2018-03-08 22:47 | RADIOLOGY IMAGING REPORT ---
FACILITY: [facility] [place] PATIENT NAME: Erika Clarke : 1975 MR: [id number] V: [id number] EXAM DATE: [id number] ORDERING PHYSICIAN: ELÍAS GOVEA TECHNOLOGIST: Location: [facility] Patient: Erika Clarke : 1975 Visit/Account:[id number] Date of Sevice: 03/08/[address]: Indication: Acute headache. Technique: Contiguous axial sections were obtained from the base to the vertex without contrast enhan cement. One of the following dose optimization techniques was utilized in the performance of this exam: Autom ated exposure control; adjustment of the mA and/or kV according to the patient's size; or use of an i terative reconstruction technique. Specific details can be referenced in the facility's radiology CT exam operational policy. Comparison: None available. Findings: There is no evidence of intra-axial or extra-axial hemorrhage. No focal areas of decreased or increased attenuation are identified. There is no evidence of mass, edema, or shift of the midline structures. The size, shape, and configuration of the ventricular system are normal. The skeletal st ructures are intact and unremarkable. The visualized paranasal sinuses and mastoid air cells are abbey r. Impression: Unremarkable unenhanced head CT. Report Dictated By: Shankar Adrian MD at 03/08/2018 10:41 PM Report E-Signed By: Shankar Adrian MD at 03/08/2018 10:43 PM WSN:[id number]
[2018-03-09] MEDS ORDERED: DEXAMETHASONE SOD PHOS 10MG/ML IVP ONE (00:10)
[2018-03-09] MEDS ORDERED: NS(*) 0.9% 1000 ML BAG 1,000 ML IV ONE (01:45)
[2018-03-09] MEDS ORDERED: IOPAMIDOL 76% 75 ML INFUS BTL 75 ML ONE (02:02)
[2018-03-09] MEDS ORDERED: NS(*) 0.9% 50 ML BAG 50 ML ONE (02:02)
[2018-03-09 02:30] VITALS: BP 145/95
--- NOTE | 2018-03-09 03:21 | RADIOLOGY IMAGING REPORT ---
FACILITY: [facility] PATIENT NAME: Erika Clarke : 1975 MR: [id number] V: [id number] EXAM DATE: [id number] ORDERING PHYSICIAN: ELÍAS GOVEA TECHNOLOGIST: Location: [facility] Patient: Erika Clarke : 1975 Visit/Account:[id number] Date of Sevice: 03/09/2018 CT angiogram of the chest: Indication: Hypoxia. Technique: Helical CT was performed through the chest following IV contrast enhancement with 75 cc of Isovue 370. Multiplanar reconstructions and MIP images are reviewed. One of the following dose optimization techniques was utilized in the performance of this exam: Autom ated exposure control; adjustment of the mA and/or kV according to the patient's size; or use of an i terative reconstruction technique. Specific details can be referenced in the facility's radiology CT exam operational policy. Comparison: 09/30/2017 Pulmonary arteries: There is uniform contrast enhancement. There are no signs of pulmonary emboli. Aorta and great vessels: There is uniform contrast enhancement. There are no signs of dissection or a neurysm. Heart and pericardial soft tissues: Within normal limits. Mediastinal soft tissues: A few small lymph nodes are present, without significant change. No new sof t tissue abnormalities are identified. Lung melchor: There is minimal atelectasis at the bases. There is chronic parenchymal scarring in the left upper lobe. No acute parenchymal process is identified. Pleural spaces: No evidence of effusion, focal pleural thickening, or pneumothorax. Skeletal structures: Intact and unchanged. Upper abdomen: There is chronic hepatomegaly with diffuse fatty infiltration. IMPRESSION: No evidence of pulmonary emboli. No acute parenchymal or pleural process. Report Dictated By: Shankar Adrian MD at 03/09/2018 3:05 AM Report E-Signed By: Shankar Adrian MD at 03/09/2018 3:13 AM WSN:[id number]
== END 2018-03-09 03:59 | disposition home or self-care (01) ==
LOC: ER 21:43
DX: R51 Headache (principal); R10.9 Unspecified abdominal pain; R11.2 Nausea with vomiting, unspecified; R09.02 Hypoxemia; G47.30 Sleep apnea, unspecified
CPT/HCPCS: 36600; 70450; 71275; 82803; 83690; 85025; 85651; 96361; 96374; 96375; 99284; J1100; J1170; J2405; J2550; J7030; J7050; Q9967; 82040; 82247; 82310; 82374; 82435; 82565; 82947; 84075; 84132; 84155; 84295; 84450; 84460; 84520

== ENCOUNTER → 2018-05-13 | Outpatient (CLI) | payer OTHER | LOC: RESP 20:44 | PROVIDERS: ATTEND Nurse Practitioner Family | DX: G47.33 Obstructive sleep apnea (adult) (pediatric) (principal); G47.61 Periodic limb movement disorder; G47.36 Sleep related hypoventilation in conditions classified elsewhere ==

== ENCOUNTER → 2018-06-07 | Outpatient (CLI) | payer OTHER ==
--- NOTE | 2018-06-07 16:51 | RADIOLOGY IMAGING REPORT ---
[facility] PATIENT NAME: Erika Clarke : 1975 MR: [id number] V: [id number] EXAM DATE: ORDERING PHYSICIAN: VANDANA MCCOY TECHNOLOGIST: Location: [facility] [place] Patient: Erika Clarke : 1975 Visit/Account:[id number] Date of Sevice: 06/07/2018 EXAMINATION: MRI Lumbar spine without intravenous contrast HISTORY: Lumbar radiculopathy. COMPARISON: Lumbar spine radiographs dated 07/01/2017. TECHNIQUE: Multi-planar, multi-sequence lumbar spine MRI was performed without intravenous contrast administration. FINDINGS: Alignment: Normal. Vertebral marrow signal: Mild degenerative endplate changes in the inferior L1 vertebral body. Distal thoracic cord: Negative. Conus: negative, terminates at L1 Cauda equina: Small Tarlov cysts at S2. Otherwise negative. Paravertebral soft tissues: Negative. Visualized abdominal and pelvic structures: Small cyst in the posterior right kidney. Disc Spaces: Lower thoracic spine: Negative. L1-2: Mild degenerative endplate changes in the inferior L1 vertebral body. Mild disc height loss. Mi nimal disc bulge. No significant stenosis. L2-3: Negative. L3-4: Negative. L4-5: Negative. L5-S1: Mild right facet hypertrophy. No significant stenosis. IMPRESSION: Minimal degenerative changes in the lumbar spine with no significant stenosis. Report Dictated By: Kulwant Milian MD at 06/07/2018 4:42 PM Report E-Signed By: Kulwant Milian MD at 06/07/2018 4:47 PM WSN:[id number]
== END ==
LOC: MRI 01:07
PROVIDERS: ATTEND Nurse Practitioner Family
DX: M47.896 Other spondylosis, lumbar region (principal)
CPT/HCPCS: 72148

== ENCOUNTER → 2018-07-16 | Outpatient (CLI) | payer OTHER | LOC: RESP 19:40 | PROVIDERS: ATTEND Nurse Practitioner Family | DX: G47.33 Obstructive sleep apnea (adult) (pediatric) (principal); G47.61 Periodic limb movement disorder; G47.36 Sleep related hypoventilation in conditions classified elsewhere ==

== ENCOUNTER 2018-08-27 05:15 | Emergency (ER) | payer OTHER ==
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
[2018-08-27 05:21] VITALS: BP 119/70
[2018-08-27] MEDS ORDERED: DIPHTH/TETANUS/ACEL. PERTUSSIS IM ONLY ONE (05:35)
== END 2018-08-27 06:07 | disposition home or self-care (01) ==
LOC: ER 05:39
DX: S81.011A Laceration without foreign body, right knee, initial encounter (principal); W06.XXXA Fall from bed, initial encounter
CPT/HCPCS: 90471; 90715; 99283

== ENCOUNTER 2018-09-05 06:06 | Emergency (ER) | payer OTHER ==
[2018-09-05 06:17] VITALS: BP 231/156
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
[2018-09-05] MEDS ORDERED: EPINEPHrine HCL 1 MG/ML AMP IV ONE (06:40)
[2018-09-05] MEDS ORDERED: SODIUM BICARB 8.4% 50 MEQ/50ML IV ONE (06:40)
== END 2018-09-05 08:02 | disposition expired ==
LOC: ER 06:31 → MERGE 06:31 → ER 08:02
DX: I46.9 Cardiac arrest, cause unspecified (principal); T24.312A Burn of third degree of left thigh, initial encounter; T24.212A Burn of second degree of left thigh, initial encounter
CPT/HCPCS: 92950; 99285

== ENCOUNTER → 2018-09-05 | Outpatient (CLI) | payer OTHER | LOC: AMB 05:45 | PROVIDERS: ATTEND Nurse Practitioner | DX: I46.9 Cardiac arrest, cause unspecified (principal) | CPT/HCPCS: A0425; A0433 ==